=== PATIENT | female | born 1975 | race Caucasian/White ===

== ENCOUNTER 2017-06-25 20:25 | Emergency (ER) | payer MEDICAID ==
[~2017-06-25] VITALS: Ht 167.6 cm; Wt 64.4 kg
--- NOTE | 2017-06-25 21:29 | NUR ---
Patient discharged to home in stable conditon. Written and verbal after care instructions given. Patient verbalizes understanding of instructions.
== END 2017-06-25 21:30 | disposition home or self-care (01) ==
LOC: ER 20:26
DX: S52.615A Nondisplaced fracture of left ulna styloid process, initial encounter for closed fracture (principal); W18.30XA Fall on same level, unspecified, initial encounter; Y93.89 Activity, other specified; Y92.89 Other specified places as the place of occurrence of the external cause; Y99.8 Other external cause status
CPT/HCPCS: 73090; 73110; A4663

== ENCOUNTER 2017-12-18 21:13 | Emergency (ER) | payer MEDICAID ==
[~2017-12-18] VITALS: Ht 167.6 cm; Wt 59.0 kg
--- NOTE | 2017-12-18 21:52 | NUR ---
Patient ambulated to ER with steady gait, c/o pain on right knee x 1 week, patient states just woke up at night and was painful, denies falling, or strenous exercise or lifting.
[2017-12-18] MEDS ORDERED: TRAMADOL HCL 50 MG TABLET PO ONE (22:15)
--- NOTE | 2017-12-18 22:17 | NUR ---
Xray at bedside.
[2017-12-18] MEDS ORDERED: TRAMADOL HCL 50 MG TABLET ONE (22:21)
--- NOTE | 2017-12-18 23:30 | NUR ---
Patient discharged to home in stable conditon. Written and verbal after care instructions given. Patient verbalizes understanding of instructions. Patient ambulated out of ER with steady gait, no acute signs of distress, VSS, all belongings taken, copy of CD of Xray provided.
[2017-12-19 00:35] VITALS: BP 114/84
== END 2017-12-18 23:30 | disposition home or self-care (01) ==
LOC: ER 21:14
DX: M25.561 Pain in right knee (principal); F17.210 Nicotine dependence, cigarettes, uncomplicated
CPT/HCPCS: 73562; A4663

== ENCOUNTER 2019-02-21 12:03 | Emergency (ER) | payer MEDICAID ==
[~2019-02-21] VITALS: Ht 172.7 cm; Wt 63.5 kg
--- NOTE | 2019-02-21 12:32 | NUR ---
Dr Alvarez at the bedside for MSE.
[2019-02-21 12:34] LABS: *BILIRUBIN,URIN NEGATIVE (NEGATIVE); *BLOOD, URINE 2+ (NEGATIVE); *CLARITY,URINE SLIGHTLY CLOUDY (CLEAR); *COLOR,URINE YELLOW (YELLOW); *KETONES,URINE TRACE (NEGATIVE); *UROBILINOGEN,URINE 0.2 E.U./dl (NORMAL); LEUKOCYTE ESTERASE ,URINE TRACE (NEGATIVE); NITRITE, URINE POSITIVE (NEGATIVE); PH,URINE 5.5 (5.0-8.0); UGLUCOSE NEGATIVE (NEGATIVE)
[2019-02-21 12:36] LABS: *URINE HCG, QUAL NEGATIVE (NEGATIVE)
[2019-02-21 12:43] LABS: SQUAMOUS EPITHELIAL CELL,UR FEW /HPF (NONE SEEN)
[2019-02-21 12:44] LABS: BACTERIA,URINE MANY /HPF (NONE SEEN)
[2019-02-21] MEDS ORDERED: SULFAMETH/TRIMETH 800/160 MG TABLET ONE (12:56)
[2019-02-21] MEDS ORDERED: OXYCODONE/APAP 5-325 MG TABLET ONE (12:56)
[2019-02-21] MEDS ORDERED: OXYCODONE/APAP 5-325 MG TABLET PO ONE (13:00)
[2019-02-21] MEDS ORDERED: SULFAMETH/TRIMETH 800/160 MG TABLET PO ONE (13:00)
[2019-02-21 13:01] VITALS: BP 112/70
--- NOTE | 2019-02-21 13:03 | NUR ---
Patient discharged to home in stable conditon. Written and verbal after care instructions given. Patient verbalizes understanding of instructions.
== END 2019-02-21 13:03 | disposition home or self-care (01) ==
LOC: ER 12:04
DX: N39.0 Urinary tract infection, site not specified (principal); F17.200 Nicotine dependence, unspecified, uncomplicated
CPT/HCPCS: 84703; 87077; 87086; A4663